=== PATIENT | male | born 2005 | race Caucasian/White ===

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

== ENCOUNTER 2025-01-04 20:36 | Emergency (ER) | payer OTHER, SELFPAY ==
[2025-01-04 20:40] VITALS: BP 133/88
--- NOTE | 2025-01-04 21:14 | ED.GENMED ---
History of Present Illness
General
Chief Complaint: Wound Check/Suture Removal
Time Seen by Provider: 01/04/25 21:01
History of Present Illness
History of Present Illness:
19-year-old male presents for evaluation of suture removal. Had sutures placed last week, 4 to the pinky fingertip, no other complaints
Past History
Past History
ED Past Medical History: Asthma and Psychiatric
ED Past Surgical History: Orthopedic
Social History
Tobacco: Non-smoker
Alcohol: None
Drug: None
Personal: Single
Living: with family
Employment: Employed
Family History
Family History: Other (Noncontributory)
Review of Systems
Review of Systems
Allergies reviewed?: Yes
Phy Exam
Physical Exam
Physical Exam:
GEN: Well appearing, NAD, WDWN
HEENT: Oral mucosa moist, no scleral icterus
Cardiac: Regular rate
Lung: No respiratory distress, no tachypnea
MSK: No gross deformity or injuries
Skin: Good color, no pallor or jaundice, no rashes. Intact sutures to the left pinky fingertip
Neuro: AO x3, moves all extremities freely
Psych: Calm, cooperative
Course
Vital Signs
Initial and Last Documented VS:
Initial Vital Signs
Temp Pulse Resp BP Pulse Ox
97.8 F 95 18 133/88 98
01/04/25 20:40 01/04/25 20:40 01/04/25 20:40 01/04/25 20:40 01/04/25 20:40
Last Documented Vital Signs
Temp Pulse Resp BP Pulse Ox
97.8 F 95 18 133/88 98
01/04/25 20:40 01/04/25 20:40 01/04/25 20:40 01/04/25 20:40 01/04/25 21:15
MDM/Problems Addressed
MDM/Problems Addressed:
Sutures removed without difficulty
*Pulse Oximetry
SaO2: 98
Oxygen Mode of Delivery: Room air
Patient hypoxic: no
*Critical Care Note
Total Time (30-74mins, 75-104mins- exclusive of procedures): Not Applicable
ED Attending Note
-
Portions of this chart may have been created with voice recognition software.� Occasional wrong word or��sound alike� substitutions may have occurred due to the inherent limitations of voice recognition software.
Discharge Plan
Departure
Patient Disposition: Home (Routine Discharge)
Date of Disposition: 01/04/25
Time of Disposition: 21:14
Patient with high blood pressure during this ER visit?: No
Discharge Problem:
Encounter for removal of sutures
Instructions: Stitches Removal
Prescriptions:
No Action
clonidine HCl 0.3 mg Tablet
0.3 mg PO HS
quetiapine [Seroquel] 100 mg Tablet
300 mg PO BID
acetaminophen 500 mg Tablet
500 mg PO PRN PRN (Reason: pain)
lisdexamfetamine [Vyvanse] 60 mg Capsule
60 mg PO DAILY
divalproex 500 mg Tablet,Delayed Release (Dr/Ec)
500 mg PO DAILY
Interventions
Interventions:
*Risk Screen - Suicide Last Done: 01/04/25 20:40
*General Assessment Last Done: 01/04/25 20:40
*Neglect/Abuse Screening Last Done: 01/04/25 20:40
*Nursing Disposition Last Done: 01/04/25 21:23
Discharge Date and Time
Discharge Date/Time: 01/04/25 21:23
Print Language: MONTENEGRIN
== END 2025-01-04 21:23 | disposition home or self-care (01) ==
LOC: EMR 20:36
PROVIDERS: EMERGENCY PHYSICIAN Emergency Medicine
DX: Z48.02 Encounter for removal of sutures (principal); J45.909 Unspecified asthma, uncomplicated
CPT/HCPCS: 99281